=== PATIENT | male | born 1940 | race Caucasian/White ===

== ENCOUNTER 2020-02-11 10:18 | Outpatient (REF) | payer OTHER, SELFPAY ==
[2020-02-11 11:08] LABS: MANUAL DIFF FLAG NO
[2020-02-11 11:19] LABS: Basophils Percent Auto 0.6 % (0-2); Eosinophils Absolute Auto 0.6 X10*3/uL (0.0-0.4); Eosinophils Percent Auto 12.1 % (0-4); Imm Gran Abs Auto 0.01 X10*3/uL (0.00-0.03); Imm Gran Pct Auto 0.2 % (0.0-0.4); Lymphocytes Absolute Auto 2.1 X10*3/uL (1.2-4.9); Lymphocytes Percent Auto 45.2 % (20-40); Mean Corpuscular HGB Conc 33.3 g/dl (31.0-36.0); Mean Corpuscular Hemoglobin 32.7 pg (27.0-33.0); Mean Platelet Volume 9.9 fL (9.4-12.4); Monocytes Absolute Auto 0.4 X10*3/uL (0.1-1.2); Monocytes Percent Auto 7.8 % (2-11); Neutrophils Absolute Auto 1.6 X10*3/uL (2.0-8.3); Neutrophils Percent Auto 34.1 % (45-73); Platelet Count 196 X10*3/uL (160-400); Red Blood Count 4.59 X10*6/uL (4.60-5.80); Red Cell Distribution Width 12.8 % (11.0-16.0); White Blood Count 4.7 X10*3/uL (4.8-10.8)
[2020-02-11 11:35] LABS: Alanine Aminotransferase 36 U/L (0-40); Albumin Level 3.7 g/dL (3.5-5.0); Alkaline Phosphatase 72 U/L (39-117); Anion Gap 9 (12-20); Aspartate Amino Transferase 23 U/L (5-37); Bilirubin Total 0.5 mg/dL (0.0-1.0); Blood Urea Nitrogen 23 mg/dL (9-16); Calcium 8.9 mg/dL (8.4-10.2); Carbon Dioxide 31 mmol/L (22-29); Chloride 107 mmol/L (96-108); Cholesterol 191 mg/dL; Estimated Glomerular Filt Rate > 60; Glucose Fasting 106 mg/dL (60-99); HDL Cholesterol 42 mg/dL; LDL Cholesterol Calculated 116 mg/dl; Potassium 4.6 mmol/l (3.3-5.1); Sodium 142 mmol/L (135-145); Total Protein 6.7 g/dL (6.5-8.0); Triglycerides 169 mg/dL
[2020-02-11 11:59] LABS: Thyroid Stimulating Hormone 2.27 uIU/mL (0.32-4.0)
== END 2020-02-11 10:19 | disposition home or self-care (01) ==
LOC: HO.LAB 10:18
PROVIDERS: PCP Internal Medicine; Visit Provider Internal Medicine
DX: Z00.00 Encounter for general adult medical examination without abnormal findings (principal); E11.9 Type 2 diabetes mellitus without complications; E03.9 Hypothyroidism, unspecified
CPT/HCPCS: 36415; 80053; 80061; 84443; 85025

== ENCOUNTER 2020-02-23 15:21 | Inpatient (IN) | payer OTHER, SELFPAY ==
[2020-02-23] VITALS (11 sets, daily range): BP systolic 101–147; BP diastolic 39–59; PULSE 54–104; RESP 11–18; TEMP 36.4–36.6; O2SAT 94–100; BMI 29.8
--- NOTE | 2020-02-23 15:28 | ECG_ITS ---
Test Reason : SYNCOE Blood Pressure : / mmHG Vent. Rate : 053 BPM Atrial Rate : 053 BPM P-R Int : 178 ms QRS Dur : 086 ms QT Int : 446 ms P-R-T Axes : 037 070 128 degrees QTc Int : [address] & T wave abnormality, consider anterolateral ischemia Abnormal ECG When compared with ECG of 23-OCT-2003 10:10, Current undetermined rhythm precludes rhythm comparison, needs review Non-specific change in ST segment in Anterior leads T wave inversion now evident in Anterolateral leads Referred By: Latonya Vera Electronically Signed By:CORI REDMAN MD
--- NOTE | 2020-02-23 15:34 | ED_ITS ---
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 Family and EMS offer history, patient is minimally verbal at baseline. Patient was found lethargic and altered after he lost consciousness. On EMS arrival patient was pale, hypotensive 80/50's with HR in the 50's. He was given 500cc IVF en route and his VS and appearance improved significantly. Patient offers no complaints on arrival. MD complaint: loss of consciousness Onset (ago): hour(s) (1) -: second(s) Related Data Home Medications Medication Instructions Recorded Confirmed citalopram 20 mg tablet 20 mg PO DAILY 02/11/20 02/11/20 galantamine 8 mg tablet 8 mg PO BID 02/11/20 02/11/20 memantine 10 mg tablet 10 mg PO BID 02/11/20 02/11/20 Allergies Allergy/AdvReac Type Severity Reaction Status Date / Time No Known Allergies Allergy Verified 02/11/20 09:24 Review of Systems Review of Systems: Yes Unobtainable due to mental condition and Unobtainable due to mental status PMFSH Past Medical History Attestation statement: The following information was validated with the patient. Medical History Dementia Surgical History H/O rectal polypectomy History of ligation of vein History of surgery Family History Family History Father Medical history unknown Mother Medical history unknown Social History Social History (Updated 02/11/20 @ 09:26 by Erum Palomino) Alcohol intake: unknown Smoking Status: Unknown if ever smoked Use of substances other than those prescribed or required for medical reasons: Unable to respond Advance Directives: No Advance Directives Information Provided: Yes Physical Exam Vital Signs: Vital Signs: Last Vital Signs Temp 97.5 F 02/23/20 15:24 Pulse 54 02/23/20 17:02 Resp 18 02/23/20 17:02 BP 101/40 L 02/23/20 17:02 Pulse Ox 94 02/23/20 17:02 Body Mass Index 29.8 Appearance: Alert. No acute distress. Eyes: Pupils equal, round and reactive to light. ENT: Pharynx normal. Neck: Normal inspection. Neck supple. CVS: Normal heart rate and rhythm. Pulses normal. No chest wall tenderness. Respiratory: No respiratory distress. Breath sounds normal. Abdomen: Soft and nontender. +BS x4 Skin: Skin warm and dry. Normal skin color. Normal skin turgor. No rashes. Extremities: No lower extremity edema. Pelvis stable. Non-tender LE. 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 Course Course Course Narrative: 79 y/o male with history of dementia who presents with syncopal episode while having a BM. Likely vasovagal syncope. Improved after 500cc IVF. Will get cardiac workup. Exam is benign. Reevaluation(s) Reevaluation #1: EKG with new t-wave inversions V2-V6 compared to prior. Initial troponin is negative. Case discussed with Dr. Marrero - admission recommended. Hospitalist aware. MDM - Syncope Differential Diagnosis Differential diagnosis: Likely syncope due to orthostatic hypotension, vasovagal syncope, complete atrioventricular block, subarachnoid hemorrhage, pulmonary embolism and dehydration Medical Records Attestation: I reviewed the patient's medical records. Lab Data Result diagrams: 02/23/20 16:09 02/23/20 16:09 Labs: Lab Results 02/23/20 02/23/20 02/23/20 Range/Units 16:09 16:09 16:09 WBC 7.2 (4.8-10.8) X10*3/uL RBC 4.49 L (4.60-5.80) X10*6/uL Hgb 14.7 (14.0-18.0) g/dl Hct 44.0 (42-52) % MCV 98.0 (80-98) fL MCH 32.7 (27.0-33.0) pg MCHC 33.4 (31.0-36.0) g/dl RDW 12.7 (11.0-16.0) % Plt Count 220 (160-400) X10*3/uL MPV 9.7 (9.4-12.4) fL Immature Gran % (Auto) 0.3 (0.0-0.4) % Neut % (Auto) 55.1 (45-73) % Lymph % (Auto) 29.0 (20-40) % [place] % (Auto) 9.2 (2-11) % Eos % (Auto) 5.8 H (0-4) % Baso % (Auto) 0.6 (0-2) % Lymph # (Auto) 2.1 (1.2-4.9) X10*3/uL [place] # (Auto) 0.7 (0.1-1.2) X10*3/uL Eos # (Auto) 0.4 (0.0-0.4) X10*3/uL Baso # (Auto) 0.0 (0.0-0.2) X10*3/uL Abs Immat Gran (auto) 0.02 (0.00-0.03) X10*3/uL Absolute Neuts (auto) 4.0 (2.0-8.3) X10*3/uL Absolute Nucleated RBC 0.000 (0.0-0.012) X10*3/uL Nucleated RBC % (auto) 0.0 (0.0-0.2) /100WBC PT (10.8-13.0) SEC INR (0.9-1.1) Sodium 142 (135-145) mmol/L Potassium 4.4 (3.3-5.1) mmol/l Chloride 107 (96-108) mmol/L Carbon Dioxide 28 (22-29) mmol/L Anion Gap 11 L (12-20) BUN 17 H (9-16) mg/dL Creatinine 1.32 (0.5-1.4) mg/dL Estim Creat Clear Calc 57.3 Estimated GFR 53 Random Glucose 131 H (60-115) mg/dL Calcium 8.5 (8.4-10.2) mg/dL Magnesium 2.5 (1.6-2.6) mg/dL Total Bilirubin 0.4 (0.0-1.0) mg/dL Direct Bilirubin 0.2 (0.0-0.5) mg/dL AST 16 (5-37) U/L ALT 21 (0-40) U/L Alkaline Phosphatase 67 (39-117) U/L Troponin I High Sens < 3.5 (<3.5-35.0) ng/L Total Protein 6.4 L (6.5-8.0) g/dL Albumin 3.6 (3.5-5.0) g/dL 02/23/20 Range/Units 16:09 WBC (4.8-10.8) X10*3/uL RBC (4.60-5.80) X10*6/uL Hgb (14.0-18.0) g/dl Hct (42-52) % MCV (80-98) fL MCH (27.0-33.0) pg MCHC (31.0-36.0) g/dl RDW (11.0-16.0) % Plt Count (160-400) X10*3/uL MPV (9.4-12.4) fL Immature Gran % (Auto) (0.0-0.4) % Neut % (Auto) (45-73) % Lymph % (Auto) (20-40) % [place] % (Auto) (2-11) % Eos % (Auto) (0-4) % Baso % (Auto) (0-2) % Lymph # (Auto) (1.2-4.9) X10*3/uL [place] # (Auto) (0.1-1.2) X10*3/uL Eos # (Auto) (0.0-0.4) X10*3/uL Baso # (Auto) (0.0-0.2) X10*3/uL Abs Immat Gran (auto) (0.00-0.03) X10*3/uL Absolute Neuts (auto) (2.0-8.3) X10*3/uL Absolute Nucleated RBC (0.0-0.012) X10*3/uL Nucleated RBC % (auto) (0.0-0.2) /100WBC PT 12.3 (10.8-13.0) SEC INR 1.0 (0.9-1.1) Sodium (135-145) mmol/L Potassium (3.3-5.1) mmol/l Chloride (96-108) mmol/L Carbon Dioxide (22-29) mmol/L Anion Gap (12-20) BUN (9-16) mg/dL Creatinine (0.5-1.4) mg/dL Estim Creat Clear Calc Estimated GFR Random Glucose (60-115) mg/dL Calcium (8.4-10.2) mg/dL Magnesium (1.6-2.6) mg/dL Total Bilirubin (0.0-1.0) mg/dL Direct Bilirubin (0.0-0.5) mg/dL AST (5-37) U/L ALT (0-40) U/L Alkaline Phosphatase (39-117) U/L Troponin I High Sens (<3.5-35.0) ng/L Total Protein (6.5-8.0) g/dL Albumin (3.5-5.0) g/dL ECG Data Attestation: I personally reviewed and interpreted this ECG as follows: Prior ECG tracings: available for review Interpretation: sinus bradycardia, HR 55, diffuse t-wave inversions in V2-V6. normal MA Interval. Discharge Plan Discharge Clinical Impression: Syncope, Abnormal EKG Patient Disposition: Admitted As Inpatient Prescriptions: No Action galantamine 8 mg tablet 8 mg PO BID RF: 0 memantine 10 mg tablet 10 mg PO BID RF: 0 citalopram 20 mg tablet 20 mg PO DAILY RF: 0
[2020-02-23 16:14] LABS: MANUAL DIFF FLAG NO
[2020-02-23 16:19] LABS: Basophils Percent Auto 0.6 % (0-2); Eosinophils Absolute Auto 0.4 X10*3/uL (0.0-0.4); Eosinophils Percent Auto 5.8 % (0-4); Hemoglobin 14.7 g/dl (14.0-18.0); Imm Gran Abs Auto 0.02 X10*3/uL (0.00-0.03); Imm Gran Pct Auto 0.3 % (0.0-0.4); Lymphocytes Absolute Auto 2.1 X10*3/uL (1.2-4.9); Mean Corpuscular HGB Conc 33.4 g/dl (31.0-36.0); Mean Corpuscular Hemoglobin 32.7 pg (27.0-33.0); Mean Platelet Volume 9.7 fL (9.4-12.4); Monocytes Absolute Auto 0.7 X10*3/uL (0.1-1.2); Monocytes Percent Auto 9.2 % (2-11); Neutrophils Percent Auto 55.1 % (45-73); Platelet Count 220 X10*3/uL (160-400); Red Blood Count 4.49 X10*6/uL (4.60-5.80); Red Cell Distribution Width 12.7 % (11.0-16.0); White Blood Count 7.2 X10*3/uL (4.8-10.8)
[2020-02-23 16:29] LABS: Prothrombin Time 12.3 SEC (10.8-13.0)
[2020-02-23 16:39] LABS: Alanine Aminotransferase 21 U/L (0-40); Albumin Level 3.6 g/dL (3.5-5.0); Alkaline Phosphatase 67 U/L (39-117); Anion Gap 11 (12-20); Aspartate Amino Transferase 16 U/L (5-37); Bilirubin Direct 0.2 mg/dL (0.0-0.5); Bilirubin Total 0.4 mg/dL (0.0-1.0); Blood Urea Nitrogen 17 mg/dL (9-16); Calcium 8.5 mg/dL (8.4-10.2); Carbon Dioxide 28 mmol/L (22-29); Chloride 107 mmol/L (96-108); Creatinine Clr Calc Pharmacy 57.3; Estimated Glomerular Filt Rate 53; Glucose Random 131 mg/dL (60-115); Magnesium 2.5 mg/dL (1.6-2.6); Potassium 4.4 mmol/l (3.3-5.1); Sodium 142 mmol/L (135-145); Total Protein 6.4 g/dL (6.5-8.0)
[2020-02-23 16:42] LABS: Troponin-I High Sensitivity < 3.5 ng/L (<3.5-35.0)
--- NOTE | 2020-02-23 18:31 | PC.NURSE ---
Labs reviewed by PA, pt to be admitted to hospitalist service, updated on plan. Pt remains confused, ripped out IV. New #20 placed in right hand and wrapped with gauze. SR on monitor, alert and appears to be at baseline. Awaiting hospitalist eval
[2020-02-23 19:44] LABS: Troponin-I High Sensitivity < 3.5 ng/L (<3.5-35.0)
--- NOTE | 2020-02-23 20:58 | PC.NURSE ---
PT HAS HIS OWN HOME MEDICATIONS WITH HIM. PT ADMINISTERED MEMANTINE 10MG AND GALANTAMINE HBR 8MG TABLET.
[2020-02-23 21:07] LABS: COVID-19 Test Negative (Negative)
[2020-02-23] MEDS: Heparin Sodium,Porcine 5,000 UNIT/ML VIAL 5000 UNIT SUBCUT (21:40)
[2020-02-23] MEDS: Lactated Ringers 1,000 ML 100 ML IVCONT (21:40)
--- NOTE | 2020-02-23 22:32 | P.HPHOSP_ITS ---
History of Present Illness Date of Service: 02/23/20 Chief Complaint: syncope This is a 79-year-old male with past medical history of Alzheimer's dementia presents to the hospital with reported syncope. I spoke to the as patient has advanced Alzheimer's dementia and is nonverbal at baseline. According to hi s he woke up this morning as normal but when she bathes him he had a difficult time getting out of the shower. He did not want to get out of the shower and she had to prompt him to get out and have breakfast. Around 2:00 p.m. he went to use the bathroom but took a long time and she went and check on him and found him sitting on the toilet with feces in his pants which is unusual for him. She tried to clean him while in the bathroom an after cleaning him she noted him to have an unusual behavior where he showed his eyes hard and was not moving or responding to any of her verbal commands. Patient's reports that she thought he was unconscious although he did not have a fall of the toilet seat and remained seated in his position. Patient also reports that he has not been eating that much for the past few weeks, has low oral intake. She has to prompted him to be able to get him to eat anything. She denies witnessing any seizure-like activity. She reports that this may have lasted about 3-4 minutes. He had no vomiting, he has been otherwise doing well. I am unable to obtain complete review of system is patient has advanced dementia and is nonverbal at baseline On arrival to the ED vitals are significant for a temp of 97.5?, heart rate of 55, respiratory rate of 16, blood pressure 116/41 and satting 99% on room air. It appears that on arrival of EMS patient's blood pressure was found to be 80s over 50s and heart rate in the 50s. Labs are significant for WBC count 7.2, hemoglobin of 14.7, sodium of 142, potassium 4.4, BUN of 17, creatinine of 1.32 (baseline around 1 point 2), COVID- 19 negative, EKG showing QT interval of 418, has T-wave inversions in the late ral leads that were not present previously. High sensitivity troponin negative, patient unable to tell us if he has any chest pain Past medical history is obtained from chart Past medical history: Dementia Surgical history: Rectal polypectomy, ligation of ink, Family history: Unknown Social history: Comes from home, lives with his , no history of tobacco alcohol or illicit drugs Review of Systems Review of Systems: Yes Unobtainable due to mental condition and Unobtainable due to mental status [facility] Medical History Dementia Family History Father Medical history unknown Mother Medical history unknown Surgical History H/O rectal polypectomy History of ligation of vein History of surgery Social History (Updated 02/11/20 @ 09:26 by Erum Palomino) Alcohol intake: unknown Smoking Status: Unknown if ever smoked Use of substances other than those prescribed or required for medical reasons: Unable to respond Advance Directives: No Advance Directives Information Provided: Yes Meds Allergies Allergy/AdvReac Type Severity Reaction Status Date / Time No Known Allergies Allergy Verified 02/11/20 09:24 Home Medications Medication Instructions Recorded Confirmed Type citalopram 20 mg tablet 20 mg PO DAILY 02/11/20 02/23/20 History galantamine 8 mg tablet 8 mg PO BID 02/11/20 02/23/20 History memantine 10 mg tablet 10 mg PO BID 02/11/20 02/23/20 History ascorbic acid (vitamin C) [Vitamin 500 mg PO DAILY 02/23/20 02/23/20 History C] cholecalciferol (vitamin D3) 25 mcg PO DAILY 02/23/20 02/23/20 History Physical Exam Vital Signs and Narrative: Vital Signs: Last Vital Signs Temp 97.5 F 02/23/20 15:24 Pulse 104 H 02/23/20 21:56 Resp 11 L 02/23/20 21:36 BP 111/39 L 02/23/20 21:56 Pulse Ox 99 02/23/20 21:36 Body Mass Index 29.8 Const: General: cooperative and no acute distress Eyes: General: appearance normal, both eyes and all related structures Resp: Effort & Inspection: normal respiratory effort and able to speak in complete sentences Cardio: Rate: regular rate Rhythm: regular rhythm GI: Palpation (GI): Soft to palpation Auscultation: normal bowel sounds Skin: General skin exam: no rashes or lesions noted Neuro: Cognition (Neuro): normal cognition Extrem: General: Yes normal to inspection and Yes no pedal edema Results Labs CBC and Chem 7: 02/23/20 16:09 02/23/20 16:09 Labs: Laboratory Results - last 24 hr 02/23/20 02/23/20 02/23/20 16:09 16:09 16:09 MCV 98.0 MCH 32.7 MCHC 33.4 RDW 12.7 Plt Count 220 MPV 9.7 Immature Gran % (Auto) 0.3 Neut % (Auto) 55.1 Lymph % (Auto) 29.0 [place] % (Auto) 9.2 Eos % (Auto) 5.8 H Baso % (Auto) 0.6 Lymph # (Auto) 2.1 [place] # (Auto) 0.7 Eos # (Auto) 0.4 Baso # (Auto) 0.0 Abs Immat Gran (auto) 0.02 Absolute Neuts (auto) 4.0 Absolute Nucleated RBC 0.000 Nucleated RBC % (auto) 0.0 PT INR Anion Gap 11 L Estim Creat Clear Calc 57.3 Estimated GFR 53 Random Glucose 131 H Calcium 8.5 Magnesium 2.5 Total Bilirubin 0.4 Direct Bilirubin 0.2 AST 16 ALT 21 Alkaline Phosphatase 67 Troponin I High Sens < 3.5 Total Protein 6.4 L Albumin 3.6 COVID-19 (K[facility]LA) COVID-19 [employer] 02/23/20 02/23/20 02/23/20 16:09 19:11 20:42 MCV MCH MCHC RDW Plt Count MPV Immature Gran % (Auto) Neut % (Auto) Lymph % (Auto) [place] % (Auto) Eos % (Auto) Baso % (Auto) Lymph # (Auto) [place] # (Auto) Eos # (Auto) Baso # (Auto) Abs Immat Gran (auto) Absolute Neuts (auto) Absolute Nucleated RBC Nucleated RBC % (auto) PT 12.3 INR 1.0 Anion Gap Estim Creat Clear Calc Estimated GFR Random Glucose Calcium Magnesium Total Bilirubin Direct Bilirubin AST ALT Alkaline Phosphatase Troponin I High Sens < 3.5 Total Protein Albumin COVID-19 (KARLA) Negative COVID-19 Clin Com See Note Assessment and Plan (1) Syncope: Qualifiers: Syncope type: unspecified Qualified Code(s): R55 - Syncope and collapse Status: Acute (2) Abnormal EKG: Status: Acute 79-year-old male with history of dementia who presents to the hospital with syncope # syncope - vasovagal versus cardiogenic versus neurogenic versus orthostatic hypotension - apparently was significantly hypotensive on arrival of EMS with blood pressure 80 over 50s received 500 of NS by EMS with blood pressure improving - has EKG changes that were not present in the past with negative troponin - patient was using the bathroom when the incident occurred Plan: - will admit to telemetry - obtain an echocardiogram - Obtain orthostatic vitals - IV fluids # T-wave inversions on EKG - troponin negative, unable to obtain as patient has any cardiac symptoms due to his medical condition - will obtain echocardiogram - admit to telemetry Code status: Spoke to his regarding code status and she wants patient to be DNR DNI DVT prophylaxis: Lovenox
[2020-02-24] VITALS (7 sets, daily range): BP systolic 123–157; BP diastolic 56–78; PULSE 76–122; RESP 18–20; TEMP 36.4–37; O2SAT 94–97
[2020-02-24 05:20] LABS: Basophils Percent Auto 0.2 % (0-2); Eosinophils Absolute Auto 0.4 X10*3/uL (0.0-0.4); Eosinophils Percent Auto 6.3 % (0-4); Hematocrit 39.7 % (42-52); Hemoglobin 13.6 g/dl (14.0-18.0); Imm Gran Abs Auto 0.01 X10*3/uL (0.00-0.03); Imm Gran Pct Auto 0.2 % (0.0-0.4); Lymphocytes Absolute Auto 2.8 X10*3/uL (1.2-4.9); Lymphocytes Percent Auto 43.7 % (20-40); MANUAL DIFF FLAG NO; Mean Corpuscular HGB Conc 34.3 g/dl (31.0-36.0); Mean Corpuscular Hemoglobin 32.8 pg (27.0-33.0); Mean Corpuscular Volume 95.7 fL (80-98); Mean Platelet Volume 9.9 fL (9.4-12.4); Monocytes Absolute Auto 0.6 X10*3/uL (0.1-1.2); Monocytes Percent Auto 8.9 % (2-11); Neutrophils Absolute Auto 2.6 X10*3/uL (2.0-8.3); Neutrophils Percent Auto 40.7 % (45-73); Platelet Count 193 X10*3/uL (160-400); Red Blood Count 4.15 X10*6/uL (4.60-5.80); Red Cell Distribution Width 12.5 % (11.0-16.0); White Blood Count 6.3 X10*3/uL (4.8-10.8)
--- NOTE | 2020-02-24 05:27 | PC.NURSE ---
pt has been sleeping all night, wakes easily. pt has iv on right hand secured with gauze, he will pull iv out. pt was pulling iv line and biting tubing at one point. pt answers with one word responses.
[2020-02-24 05:43] LABS: Anion Gap 13 (12-20); Blood Urea Nitrogen 15 mg/dL (9-16); Calcium 8.4 mg/dL (8.4-10.2); Carbon Dioxide 26 mmol/L (22-29); Chloride 107 mmol/L (96-108); Creatinine Clr Calc Pharmacy 80.4; Estimated Glomerular Filt Rate > 60; Glucose Random 91 mg/dL (60-115); Potassium 3.6 mmol/l (3.3-5.1); Sodium 142 mmol/L (135-145)
[2020-02-24 06:19] LABS: Glucose Urine UA NEG (NEG); Leukocyte Esterase Urine NEG (NEG); Nitrite Urine NEG (NEG); Specific Gravity - Urine >= 1.030 (1.005-1.025); Urine Blood NEG (NEG); Urine Ketones 15 MG/DL (NEG); Urine Protein NEG (NEG-TRACE)
[2020-02-24 06:20] LABS: Appearance Urine CLEAR; Color Urine YELLOW; UACC Culture Trigger NO
[2020-02-24] MEDS: Escitalopram Oxalate 10 MG TABLET PO (09:28)
[2020-02-24] MEDS: Memantine HCl 10 MG TABLET PO ×2 (09:28→19:54)
[2020-02-24] MEDS: Heparin Sodium,Porcine 5,000 UNIT/ML VIAL 5000 UNIT SUBCUT ×2 (09:28→19:54)
[2020-02-24] MEDS: Cholecalciferol (Vitamin D3) 25 MCG TABLET PO (09:28)
[2020-02-24] MEDS: Lactated Ringers 1,000 ML 100 ML IVCONT (09:32)
--- NOTE | 2020-02-24 09:40 | PC.NURSE ---
pt alert but confused, ate all of his breakfast, respirations even and unlabored, ls clear, ns on the monitor, pt incontinent of urine, cleaned up and bed linens changed over, on the left inner thing noticeable excoriated redness, barrier cream applied
--- NOTE | 2020-02-24 10:25 | PC.NURSE ---
report given to imc rn
--- NOTE | 2020-02-24 11:12 | MHC.CM.PN ---
Patient has Advanced Alzheimer's Dementia; CM spoke with /HCP/Meera @ [phone].Patient lives in a house with his and has required no DME nor services in the home thus far. The goal for dc is for Patient to return home and CM has initiated and will follow for dc planning. PCP is Dr. Will Mcknight. and Son/Emil are the HCP Agents.
--- NOTE | 2020-02-24 14:23 | MHC.CM.PN ---
Per Discussion with family, Son/HCP/Emil at [phone] is family spokesperson/first contact. is agreeable to call Emil today with a clinical update. CM will follow.
--- NOTE | 2020-02-24 15:02 | MHC.CLN ---
RE: CONSULT WILL START LEENA R/T FRAGILE SKIN
--- NOTE | 2020-02-24 15:47 | MHC.CM.PN ---
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
--- NOTE | 2020-02-24 16:37 | P.PNIM_ITS ---
Subjective Subjective Date of Service: 02/24/20 Interval History: seen and examined in the ED this AM non-verbal unable to ROS d/w the patients son Emil, patient's Physical Exam Vital Signs: Vital Signs: Last Vital Signs Temp 98.6 F 02/24/20 16:04 Pulse 92 02/24/20 16:04 Resp 18 02/24/20 16:04 BP 137/71 02/24/20 16:04 Pulse Ox 95 02/24/20 16:04 Body Mass Index 29.8 Const: General: cooperative and no acute distress Eyes: General: appearance normal, both eyes and all related structures Pupi ls: Equal, round and reactive pupils present Resp: Effort & Inspection: normal respiratory effort and able to speak in complete sentences Cardio: Rate: regular rate Rhythm: regular rhythm GI: Palpation (GI): Soft to palpation Auscultation: normal bowel sounds Skin: General skin exam: no rashes or lesions noted Neuro: Cranial nerves: Yes Equal, round and reactive pupils present Extrem: General: Yes normal to inspection and Yes no pedal edema Objective Data Current Medications Generic Name Dose Route Start Last Admin Trade Name Mitchellq PRN Reason Stop Dose Admin Acetaminophen 650 mg 02/23/20 21:04 Acetaminophen 325 Mg Tablet PO Q6H PRN Pain, Mild (Pain Scale 1-3) Docusate Sodium 100 mg 02/23/20 21:04 Docusate Sodium 100 Mg Capsule PO DAILY PRN Constipation Escitalopram Oxalate 10 mg 02/24/20 09:00 02/24/20 09:28 Escitalopram Oxalate 10 Mg Tablet PO 10 mg DAILY MADELINE Administration Heparin Sodium (Porcine) 5,000 unit 02/23/20 21:04 02/24/20 09:28 Heparin Sodium,Porcine 5,000 Unit/Ml Vial SUBCUT 5,000 unit Q12H MADELINE Administration Lactated Ringer's 1,000 mls @ 100 mls/hr 02/23/20 21:15 02/24/20 15:55 Lr IVCONT Not Given .Q10H MADELINE Memantine 10 mg 02/23/20 21:04 02/24/20 09:28 Memantine Hcl 10 Mg Tablet PO 10 mg BID MADELINE Administration Ondansetron HCl 4 mg 02/23/20 21:04 Ondansetron Hcl 4 Mg/2 Ml Vial IVPUSH Q8H PRN Nausea and Vomiting Pharmacy Consult 1 each 02/23/20 19:07 Consult Rx Perform Med Rec MISCELLANE ONCE PRN Consult order Sodium Chloride 3 ml 02/24/20 00:00 02/24/20 15:27 0.9 % Sodium Chloride Flush 3 Ml Syringe IVFLUSH Not Given QSHIFT MADELINE Vitamin D 25 mcg 02/24/20 09:00 02/24/20 09:28 Cholecalciferol (Vitamin D3) 25 Mcg Tablet PO 25 mcg DAILY MADELINE Administration Labs CBC & Chem 7: 02/24/20 05:05 02/24/20 05:05 Assessment and Plan (1) Syncope: Status: Acute (2) Abnormal EKG: Status: Acute Assessment and Plan: 79-year-old male with history of dementia who presents to the hospital with sy ncope 1. syncope vasovagal versus cardiogenic versus neurogenic versus orthostatic hypotension check orthos montior on tele, get echo pt hypotensive with EMS, but has been normotensive here. 2. T-wave inversions on EKG HS trop-I neg x 2 echo today continue monitoring 3. Dementia/Mood continue home meds DNR/DNI DVT pptx, subcut. heparin dispo: likely home tomorrow
[2020-02-25] VITALS (7 sets, daily range): BP systolic 99–145; BP diastolic 52–71; PULSE 64–99; RESP 18–20; TEMP 36.4–37.3; O2SAT 90–94
[2020-02-25] MEDS: 0.9 % Sodium Chloride Flush 3 ML SYRINGE IVFLUSH ×4 (02:04→21:17)
[2020-02-25] MEDS: Heparin Sodium,Porcine 5,000 UNIT/ML VIAL 5000 UNIT SUBCUT ×2 (08:49→21:09)
[2020-02-25] MEDS: Cholecalciferol (Vitamin D3) 25 MCG TABLET PO (08:49)
[2020-02-25] MEDS: Escitalopram Oxalate 10 MG TABLET PO (08:49)
[2020-02-25] MEDS: Memantine HCl 10 MG TABLET PO ×2 (08:50→21:09)
[2020-02-25 09:58] LABS: Hematocrit 37.4 % (42-52); Hemoglobin 12.7 g/dl (14.0-18.0); Mean Corpuscular Hemoglobin 32.9 pg (27.0-33.0); Mean Corpuscular Volume 96.9 fL (80-98); Mean Platelet Volume 10.1 fL (9.4-12.4); Platelet Count 190 X10*3/uL (160-400); Red Blood Count 3.86 X10*6/uL (4.60-5.80); Red Cell Distribution Width 12.8 % (11.0-16.0); White Blood Count 4.5 X10*3/uL (4.8-10.8)
[2020-02-25 10:25] LABS: Anion Gap 11 (12-20); Blood Urea Nitrogen 13 mg/dL (9-16); Calcium 8.5 mg/dL (8.4-10.2); Carbon Dioxide 27 mmol/L (22-29); Chloride 108 mmol/L (96-108); Creatinine Clr Calc Pharmacy 68.1; Estimated Glomerular Filt Rate > 60; Glucose Random 103 mg/dL (60-115); Sodium 142 mmol/L (135-145)
--- NOTE | 2020-02-25 11:07 | MHC.CM.PN ---
Per ROUNDS discussion, W/U continues for Patient's Hypotension/Syncope and he is not yet medically cleared for dc. Home with is the goal for dc and CM will continue to monitor for dc planning and the possible need to adjust the dc plan.
--- NOTE | 2020-02-25 14:02 | MHC.CM.PN ---
CM received a call from Patient's Son/HCP/Emil at [phone], inquiring why Patient's ECHO has not yet been done. KEKE relayed this question to , who indicated that he will return Emil's call himself.
--- NOTE | 2020-02-25 15:32 | MHC.CM.PN ---
The plan will be to return home tomorrow with new VNA. CM received permission to do a wide search for a VNA in contract with Patient's insurance. CM will follow.
--- NOTE | 2020-02-25 16:36 | P.PNIM_ITS ---
Subjective Subjective Date of Service: 02/25/20 Interval History: seen and examined in the ED this AM no new issues d/w the patients son Emil this afternoon and updates given Physical Exam Vital Signs: Vital Signs: Last Vital Signs Temp 98.5 F 02/25/20 15:22 Pulse 73 02/25/20 15:22 Resp 18 02/25/20 15:22 BP 119/66 02/25/20 15:22 Pulse Ox 92 02/25/20 15:22 Body Mass Index 29.8 Const: General: cooperative and no acute distress Eyes: General: appearance normal, both eyes and all related structures Pupils: Equal, round and reactive pupils present Resp: Effort & Inspection: normal respiratory effort and able to speak in complete sentences Cardio: Rate: regular rate Rhythm: regular rhythm GI: Palpation (GI): Soft to palpation Auscultation: normal bowel sounds Skin: General skin exam: no rashes or lesions noted Neuro: Cranial nerves: Yes Equal, round and reactive pupils present Extrem: General: Yes normal to inspection and Yes no pedal edema Objective Data Current Medications Generic Name Dose Route Start Last Admin Trade Name Freq PRN Reason Stop Dose Admin Acetaminophen 650 mg 02/23/20 21:04 Acetaminophen 325 Mg Tablet PO Q6H PRN Pain, Mild (Pain Scale 1-3) Docusate Sodium 100 mg 02/23/20 21:04 Docusate Sodium 100 Mg Capsule PO DAILY PRN Constipation Escitalopram Oxalate 10 mg 02/24/20 09:00 02/25/20 08:49 Escitalopram Oxalate 10 Mg Tablet PO 10 mg DAILY MADELINE Administration Heparin Sodium (Porcine) 5,000 unit 02/23/20 21:04 02/25/20 08:49 Heparin Sodium,Porcine 5,000 Unit/Ml Vial SUBCUT 5,000 unit Q12H MADELINE Administration Memantine 10 mg 02/23/20 21:04 02/25/20 08:50 Memantine Hcl 10 Mg Tablet PO 10 mg BID MADELINE Administration Ondansetron HCl 4 mg 02/23/20 21:04 Ondansetron Hcl 4 Mg/2 Ml Vial IVPUSH Q8H PRN Nausea and Vomiting Pharmacy Consult 1 each 02/23/20 19:07 Consult Rx Perform Med Rec MISCELLANE ONCE PRN Consult order Sodium Chloride 3 ml 02/24/20 00:00 02/25/20 16:19 0.9 % Sodium Chloride Flush 3 Ml Syringe IVFLUSH 3 ml QSHIFT MADELINE Administration Vitamin D 25 mcg 02/24/20 09:00 02/25/20 08:49 Cholecalciferol (Vitamin D3) 25 Mcg Tablet PO 25 mcg DAILY MADELINE Administration Labs CBC & Chem 7: 02/25/20 09:31 02/25/20 09:31 Assessment and Plan (1) Syncope: Status: Acute (2) Abnormal EKG: Status: Acute Assessment and Plan: 79-year-old male with history of dementia who presents to the hospital with sync ope 1. syncope orthostatic negative, no reports of abnomalities on tele thus far, echo done -- pending formal results suspect likely vasovagal in nature will monitor an additional night and anticipate d/c home tomorrow with services 2. T-wave inversions on EKG HS trop-I neg x 2 echo pending continue monitoring 3. Dementia/Mood continue home meds DNR/DNI DVT pptx, subcut. heparin dispo: anticipate home with services tomorrow
--- NOTE | 2020-02-25 23:00 | CA_ITS ---
Transthoracic Echocardiogram Patient (Last, First, Middle): Salbador Bolaños J Gender: Male Date of : 1940 Age: 79 Procedure Date: 02/25/2020 Procedure Type: Transthoracic Echocardiogram Location: [facility] [place] Height: 182.88 cm Weight: 99.79 kg BSA: 2.22 m2 Heart Rate: bpm BP: 146 / 76 mmHg Tin Recovery Worker: DSG Referring MD: Robert Levine MD Administration Dean: Peewee Elliott MD Symptoms: syncope Study Quality: Technically Difficult ECG Rhythm: Sinus Conclusions: - 1. Technically difficult study 2. Normal LV systolic function with impaired relaxation filling pattern 3. Normal cardiac valvular Doppler 4. No gross pericardial effusion Findings Left Ventricle Normal left ventricular size, thickness, and systolic function. The visually estimated ejection fraction is between 60-65%. Spectral Doppler is indicative of an impaired relaxation filling pattern. Right Ventricle Normal right ventricular cavity size and systolic function. Atria Both atria are normal in size. Interatrial shunt cannot be excluded. Aortic Valve The aortic valve was not well visualized. There is no aortic valve stenosis. There is no aortic valve regurgitation. Mitral Valve Likely normal mitral valve structure and function. There is trace mitral valve regurgitation. There is no mitral valve stenosis. Pulmonic Valve The pulmonic valve was not well visualized. Tricuspid Valve The tricuspid valve was not well visualized. Tricuspid regurgitation envelope is inadequate for calculation of right ventricular systolic pressure. Great Vessels All visible segments of the aorta are normal in size. The pulmonary artery was not well visualized. Venous The inferior vena cava is normal in size and collapses greater than 50% with inspiration. Pericardium/Pleural There is no evidence of pericardial effusion. Prior Study Comparison No prior study available for comparison. Measurements 2D Linear Measurements IVSd: 1.37 0.6-0.9/0.6-1.0 cm LVIDd: 3.85 3.9-5.3/4.2-5.9 cm LVIDd Index: 1.73 2.4-3.2/2.2-3.1 cm/m2 LVIDs: 2.39 2.0-3.6 cm LVPWd: 1.00 0.7-1.1 cm Ao Root: 3.30 2.1-3.5 cm LA Diam: 2.50 2.7-3.8/3.0-4.0 cm LAIDs Index: 1.13 1.5-2.3 cm/m2 LV Mass: 190.68 67-162/88-224 g LV Mass Index: 85.89 43-95/49-115 g/m2 LVOT Diam: 1.90 3.0+(-)1.3 cm 2D Systolic Function EF 4C: 72.90 >55% EF 2C: 61.10 >55% EF BiP: 69.10 >55% Mitral Valve MV Pk E: 0.66 MV PK A: 0.60 MV Decel Time: 227.00 E/A: 1.10 E'Lateral: 3.77 E'Medial: 5.51 E/E' Med: 11.90 E/E' Lat: 17.40 PHT: 67.00 MVA PHT: 3.28 Decel Lagrange: 2.88 Aortic Valve AoV Pk Rhys: 1.56 AoV Pk Grad: 10.00 LVOT LVOT Pk Rhys: 1.53 LVOT Mn Rhys: 1.10 LVOT VTI: 0.32 LVOT Pk Grad: 9.00 LVOT Mn Grad: 6.00 LVOT Diam: 1.90 LVOT Area: 2.84 Diastolic Function MV Pk E: 0.66 MV Pk A: 0.60 E/A: 1.10 E'Medial: 5.51 E/E' Med: 11.90 E' Laterial: 3.77 E/E' Lat: 17.40 Tricuspid Valve TR Pk Rhys: 2.39 TR Pk Grad: 23.00 Great Vessels Aorta Ao Root-2D: 3.30 2.0-3.7 cm Ao Asc: 3.70 2.1-3.4 cm Updated in Other Vendor System with Status of Final Peewee Elliott MD electronically signed on 02/25/2020 4:58:38 PM with status of Final
[2020-02-26 03:34] VITALS: BP 150/72; PULSE 70; RESP 18; TEMP 36.4; O2SAT 95
[2020-02-26 07:42] VITALS: BP 122/58; PULSE 74; RESP 14; TEMP 36.4; O2SAT 93
[2020-02-26] MEDS: Heparin Sodium,Porcine 5,000 UNIT/ML VIAL 5000 UNIT SUBCUT (09:14)
[2020-02-26] MEDS: Escitalopram Oxalate 10 MG TABLET PO (09:14)
[2020-02-26] MEDS: Memantine HCl 10 MG TABLET PO (09:14)
[2020-02-26] MEDS: Cholecalciferol (Vitamin D3) 25 MCG TABLET PO (09:14)
[2020-02-26] MEDS: 0.9 % Sodium Chloride Flush 3 ML SYRINGE IVFLUSH (09:14)
--- NOTE | 2020-02-26 11:17 | PM.DS ---
DS: Providers Provider Date of Service: 02/26/20 Date of admission: 02/23/20 21:04 Primary care physician: Unknown Physician DS: Diagnosis Discharge Diagnosis (1) Syncope: Status: Acute (2) Abnormal EKG: Status: Acute DS: Medications Discharge Medications Home Medications: Home Medications Medication Instructions Recorded Confirmed citalopram 20 mg tablet 20 mg PO DAILY 02/11/20 02/23/20 galantamine 8 mg tablet 8 mg PO BID 02/11/20 02/23/20 memantine 10 mg tablet 10 mg PO BID 02/11/20 02/23/20 ascorbic acid (vitamin C) [Vitamin 500 mg PO DAILY 02/23/20 02/23/20 C] cholecalciferol (vitamin D3) 25 mcg PO DAILY 02/23/20 02/23/20 DS: Summary Hospital Course Hospital Course: Patient underwent workup for syncope which included continuous alarm security or surveillance monitor which did not reveal any cause for his syncopal episode. He underwent a 2D echo which was also negative for any identifiable cause. His with orthostatics were negative. Patient had no further syncopal episodes in the hospital. He will be discharged home with VNA services. In regards to his abnormal EKG, this was suspected to be old in nature as his echo did not show any wall motion abnormalities and his high sensitivity troponins were negative x2. Given his age and advanced dementia, would recommend conservative management. The above information was relayed to the patient's as well as patient's son Nikita. Time Spent with Patient Time attestation: Total time spent providing and/or coordinating discharge services: Discharge coordination time: Greater than 30 minutes Physical Exam Vital Signs: Vital Signs: Last Vital Signs Temp 97.6 F 02/26/20 07:42 Pulse 74 02/26/20 07:42 Resp 14 02/26/20 07:42 BP 122/58 L 02/26/20 07:42 Pulse Ox 93 02/26/20 07:42 Body Mass Index 29.8 General - no acute distress, appears comfortable Cardiovascular - regular rate and rhythm, S1-S2 Lungs - normal respiratory effort, clear to auscultation bilaterally, no wheezing Abdomen - soft, nontender, no rebound or guarding Extremities - no edema bilaterally Neuro - awake and alert, no focal deficits; non-verbal DS: Data Data Completed and Pending Labs on day of discharge: Laboratory Tests 02/23/20 02/23/20 02/23/20 16:09 16:09 16:09 WBC 7.2 RBC 4.49 L Hgb 14.7 Hct 44.0 MCV 98.0 MCH 32.7 MCHC 33.4 RDW 12.7 Plt Count 220 MPV 9.7 Immature Gran % (Auto) 0.3 Neut % (Auto) 55.1 Lymph % (Auto) 29.0 [place] % (Auto) 9.2 Eos % (Auto) 5.8 H Baso % (Auto) 0.6 Lymph # (Auto) 2.1 [place] # (Auto) 0.7 Eos # (Auto) 0.4 Baso # (Auto) 0.0 Abs Immat Gran (auto) 0.02 Absolute Neuts (auto) 4.0 Absolute Nucleated RBC 0.000 Nucleated RBC % (auto) 0.0 PT INR Sodium 142 Potassium 4.4 Chloride 107 Carbon Dioxide 28 Anion Gap 11 L BUN 17 H Creatinine 1.32 Estim Creat Clear Calc 57.3 Estimated GFR 53 Random Glucose 131 H Calcium 8.5 Magnesium 2.5 Total Bilirubin 0.4 Direct Bilirubin 0.2 AST 16 ALT 21 Alkaline Phosphatase 67 Troponin I High Sens < 3.5 Total Protein 6.4 L Albumin 3.6 Urine Color Urine Appearance Urine pH Ur Specific [place] Urine Protein Urine Glucose (UA) Urine Ketones Urine Blood Urine Nitrite Ur Leukocyte Esterase COVID-19 ([facility]) COVID-19 Clin Com 02/23/20 02/23/20 02/23/20 16:09 19:11 20:42 WBC RBC Hgb Hct MCV MCH MCHC RDW Plt Count MPV Immature Gran % (Auto) Neut % (Auto) Lymph % (Auto) [place] % (Auto) Eos % (Auto) Baso % (Auto) Lymph # (Auto) [place] # (Auto) Eos # (Auto) Baso # (Auto) Abs Immat Gran (auto) Absolute Neuts (auto) Absolute Nucleated RBC Nucleated RBC % (auto) PT 12.3 INR 1.0 Sodium Potassium Chloride Carbon Dioxide Anion Gap BUN Creatinine Estim Creat Clear Calc Estimated GFR Random Glucose Calcium Magnesium Total Bilirubin Direct Bilirubin AST ALT Alkaline Phosphatase Troponin I High Sens < 3.5 Total Protein Albumin Urine Color Urine Appearance Urine pH Ur Specific [place] Urine Protein Urine Glucose (UA) Urine Ketones Urine Blood Urine Nitrite Ur Leukocyte Esterase COVID-19 (KARLA) Negative COVID-19 Clin Com See Note 02/24/20 02/24/20 02/24/20 05:05 05:05 06:15 WBC 6.3 RBC 4.15 L Hgb 13.6 L Hct 39.7 L MCV 95.7 MCH 32.8 MCHC 34.3 RDW 12.5 Plt Count 193 MPV 9.9 Immature Gran % (Auto) 0.2 Neut % (Auto) 40.7 L Lymph % (Auto) 43.7 H [place] % (Auto) 8.9 Eos % (Auto) 6.3 H Baso % (Auto) 0.2 Lymph # (Auto) 2.8 [place] # (Auto) 0.6 Eos # (Auto) 0.4 Baso # (Auto) 0.0 Abs Immat Gran (auto) 0.01 Absolute Neuts (auto) 2.6 Absolute Nucleated RBC 0.000 Nucleated RBC % (auto) 0.0 PT INR Sodium 142 Potassium 3.6 Chloride 107 Carbon Dioxide 26 Anion Gap 13 BUN 15 Creatinine 0.94 Estim Creat Clear Calc 80.4 Estimated GFR > 60 Random Glucose 91 Calcium 8.4 Magnesium Total Bilirubin Direct Bilirubin AST ALT Alkaline Phosphatase Troponin I High Sens Total Protein Albumin Urine Color YELLOW Urine Appearance CLEAR Urine pH 6.0 Ur Specific [place] >= 1.030 H Urine Protein NEG Urine Glucose (UA) NEG Urine Ketones 15 Urine Blood NEG Urine Nitrite NEG Ur Leukocyte Esterase NEG COVID-19 ([facility]LA) COVID-19 Clin Com 02/25/20 02/25/20 09:31 09:31 WBC 4.5 L RBC 3.86 L Hgb 12.7 L Hct 37.4 L MCV 96.9 MCH 32.9 MCHC 34.0 RDW 12.8 Plt Count 190 MPV 10.1 Immature Gran % (Auto) Neut % (Auto) Lymph % (Auto) [place] % (Auto) Eos % (Auto) Baso % (Auto) Lymph # (Auto) [place] # (Auto) Eos # (Auto) Baso # (Auto) Abs Immat Gran (auto) Absolute Neuts (auto) Absolute Nucleated RBC 0.000 Nucleated RBC % (auto) 0.0 PT INR Sodium 142 Potassium 4.0 Chloride 108 Carbon Dioxide 27 Anion Gap 11 L BUN 13 Creatinine 1.11 Estim Creat Clear Calc 68.1 Estimated GFR > 60 Random Glucose 103 Calcium 8.5 Magnesium Total Bilirubin Direct Bilirubin AST ALT Alkaline Phosphatase Troponin I High Sens Total Protein Albumin Urine Color Urine Appearance Urine pH Ur Specific [place] Urine Protein Urine Glucose (UA) Urine Ketones Urine Blood Urine Nitrite Ur Leukocyte Esterase COVID-19 ([facility]ARLA) COVID-19 Clin Com Discharge Plan Discharge Patient Disposition: Home Health Service Referrals: Physician,Unknown [Primary Care Provider] - Discharge Medications: Continued ascorbic acid (vitamin C) [Vitamin C] 500 mg Tablet 500 mg PO DAILY RF: 0 cholecalciferol (vitamin D3) 25 mcg (1,000 unit) Tablet 25 mcg PO DAILY RF: 0 galantamine 8 mg tablet 8 mg PO BID RF: 0 memantine 10 mg tablet 10 mg PO BID RF: 0 citalopram 20 mg tablet 20 mg PO DAILY RF: 0 Discharge Orders: Discharge Order (Routine); Ordered 02/26/20 Ordered By: Yadiel Quinones Diet: advance to usual diet Activity on Discharge: As tolerated Visit Report Forms: Patient Portal Discharge page Care Plan Goals: To stay healthy and out of the hospital. Health Concerns: Syncope Plan of Treatment: No specific cause for your passing out was found. If this reoccurs, please return to the hospital.
[2020-02-26 11:18] VITALS: BP 121/62; PULSE 64; RESP 16; TEMP 37.2; O2SAT 91
--- NOTE | 2020-02-26 11:36 | MHC.CM.PN ---
Patient has been medically cleared for dc to home today with VNA. A referral has been made to [facility] and they have been made aware of today's dc. Patient and his Son/Emil are aware of and in agreement with the dc plan. Emil will pick Patient up at 1 PM; RN has been notified.
--- NOTE | 2020-02-26 12:54 | W.MHC.F2F ---
Service Date Service Date: 02/26/20 Encounter Date of encounter: 02/26/20 Reasons for Services Reason for long-term: CV/CP assess and/or care Reason for physical therapy: home safety and mobility Reason for occupational therapy: home safety and mobility MD Overseeing Care: Will Mcknight Homebound: Leaving the home is medically contraindicated at this time without the asist of a device and/or another person due th the listed conditions above and below. Reason homebound: cognitively impaired / unsafe Certification: Based on the above findings, I certify that this patient is confined to the home and needs intermittent long-term care, physical therapy and/or speech therapy, or continues to need occupational therapy. The patient is under my care, and I have initiated the establishment of the plan of care. The patient will be followed by a physician who will periodically review the plan of care.
== END 2020-02-26 13:28 | disposition home health service (06) | DRG 312 ==
LOC: HO.ED 17:56 → HO.S3 02-24 07:12 → HO.IMC 02-24 10:05
PROVIDERS: Physician Assistant; Admitting Provider Internal Medicine; Emergency Provider Emergency Medicine; PCP Internal Medicine; Visit Provider Family Medicine
DX: R55 Syncope and collapse (principal); G30.9 Alzheimer's disease, unspecified; F02.80 Dementia in other diseases classified elsewhere, unspecified severity, without behavioral disturbance, psychotic disturbance, mood disturbance, and anxiety; R94.31 Abnormal electrocardiogram [ECG] [EKG]; Z20.828 Contact with and (suspected) exposure to other viral communicable diseases; Z79.899 Other long term (current) drug therapy; Z66 Do not resuscitate
CPT/HCPCS: 36415; 80048; 80076; 81003; 83735; 84484; 85025; 85027; 85610; 87635; 93005; 93306; 99219; 99285

== ENCOUNTER 2021-04-13 09:55 | Outpatient (REF) | payer MEDICARE, SELFPAY ==
[2021-04-13 10:22] LABS: MANUAL DIFF FLAG NO
[2021-04-13 11:17] LABS: Basophils Percent Auto 0.8 % (0-2); Eosinophils Absolute Auto 0.3 X10*3/uL (0.0-0.4); Eosinophils Percent Auto 7.8 % (0-4); Hematocrit 40.3 % (42.0-52.0); Hemoglobin 13.3 g/dl (14.0-18.0); Lymphocytes Absolute Auto 1.7 X10*3/uL (1.2-4.9); Mean Corpuscular Hemoglobin 32.2 pg (27.0-33.0); Mean Corpuscular Volume 97.6 fL (80.0-98.0); Mean Platelet Volume 10.2 fL (9.4-12.4); Monocytes Absolute Auto 0.3 X10*3/uL (0.1-1.2); Monocytes Percent Auto 8.5 % (2-11); Neutrophils Absolute Auto 1.5 x10*3/uL (2.0-8.3); Neutrophils Percent Auto 38.9 % (45-73); Platelet Count 202 X10*3/uL (160-400); Red Blood Count 4.13 X10*6/uL (4.60-5.80); Red Cell Distribution Width 13.3 % (11.0-16.0); White Blood Count 3.9 X10*3/uL (4.8-10.8)
[2021-04-13 11:49] LABS: Alanine Aminotransferase 22 U/L (0-40); Albumin Level 3.7 g/dL (3.5-5.0); Alkaline Phosphatase 70 U/L (39-117); Anion Gap 8 (12-20); Aspartate Amino Transferase 20 U/L (5-37); Bilirubin Total 0.5 mg/dL (0.0-1.0); Blood Urea Nitrogen 21 mg/dL (9-16); Calcium 9.3 mg/dL (8.4-10.2); Carbon Dioxide 32 mmol/L (22-29); Chloride 105 mmol/L (96-108); Cholesterol 179 mg/dL; Estimated Glomerular Filt Rate > 60; Glucose Fasting 112 mg/dL (60-99); HDL Cholesterol 50 mg/dL; LDL Cholesterol Calculated 111 mg/dl; Potassium 4.1 mmol/L (3.3-5.1); Sodium 141 mmol/L (135-145); Total Protein 6.8 g/dL (6.5-8.0); Triglycerides 93 mg/dL
[2021-04-13 12:07] LABS: Thyroid Stimulating Hormone 1.88 uIU/mL (0.32-4.0)
== END 2021-04-13 09:56 | disposition home or self-care (01) ==
LOC: HO.LAB 09:55
PROVIDERS: PCP Internal Medicine; Visit Provider Internal Medicine
DX: Z00.00 Encounter for general adult medical examination without abnormal findings (principal); Z13.0 Encounter for screening for diseases of the blood and blood-forming organs and certain disorders involving the immune mechanism
CPT/HCPCS: 36415; 80053; 80061; 84443; 85025

== ENCOUNTER 2021-06-14 09:13 | Emergency (ER) | payer MEDICARE, SELFPAY ==
--- NOTE | ~2021-06-14 | XR_ITS ---
EXAMINATION: XR CHEST CLINICAL INFORMATION: Altered mental status. COMPARISON: 11/16/2008 chest radiographS. TECHNIQUE: Frontal view of the chest was obtained. FINDINGS: The chin partially obscures the lung apices. No significant abnormality is noted involving the heart, lungs, mediastinum, bony thorax or soft tissues. XR/XR chest 1V IMPRESSION: No acute cardiopulmonary process.
--- NOTE | ~2021-06-14 | US_ITS ---
EXAMINATION: US ABDOMEN LIMITED CLINICAL INFORMATION: Weakness. Right upper quadrant pain and elevated liver function tests.. COMPARISON: None TECHNIQUE: Real-time imaging of the gallbladder FINDINGS: Exam is limited as the patient would not cooperate with the exam. The gallbladder is normal in size. No gallstones are seen. The gallbladder wall does not appear thickened. There is no pericholecystic fluid. US/US abdomen limited IMPRESSION: Limited exam. The gallbladder appears normal.
--- NOTE | ~2021-06-14 | CT_ITS ---
EXAMINATION: CT HEAD WITHOUT CONTRAST CLINICAL INFORMATION: Altered mental status COMPARISON: MRI brain dated 03/10/2013. TECHNIQUE: Contiguous axial imaging was performed from the skull base to vertex without intravenous administration of contrast. This CT examination was performed using dose optimization techniques as appropriate, variously including the following: *Automated exposure control *Adjustment of mA and/or kV according to patient size (this includes techniques or standardized protocols for targeted exams where dose is matched to indication/reason for exam; i.e. extremities or head) *Use of iterative reconstruction technique DLP: 764 mGy-cm FINDINGS: There is no evidence of acute intracranial hemorrhage or territorial infarction. No abnormal mass effect or midline shift is seen. Messer to white matter differentiation is well preserved. No extra-axial fluid collections are identified. Marked generalized brain parenchymal volume loss with commensurate prominence of the ventricular system and cortical sulci/fissures. Moderate patchy subcortical and periventricular white matter low-attenuation changes statistically related to chronic white matter small vessel ischemic disease. Cavernous carotid calcifications. The osseous structures and soft tissues are normal. Mucoperiosteal thickening present throughout the paranasal sinuses, along with scattered secretions. Mastoid air cells are clear. CT/CT head/brain wo con IMPRESSION: * No acute intracranial hemorrhage or transcortical infarct. * Severe generalized brain parenchymal volume loss and moderate white matter small vessel ischemic changes.
[2021-06-14 09:20] VITALS: BP 107/60; BP 113/49; PULSE 88; PULSE 94; RESP 18; TEMP 37.3; O2SAT 94; O2SAT 98; BMI 29.0
--- NOTE | 2021-06-14 09:21 | ED_ITS ---
HPI - Weakness General Chief complaint: General Medical Stated complaint: INCREASED LETHARGY, COUGH Time Seen by Provider: 06/14/21 09:21 Source: patient Mode of arrival: EMS Limitations: altered mental status (dementia) History of Present Illness MD Complaint: generalized weakness (cough ) Onset (ago): day(s) (2) Duration: constant Location: generalized Migration: none Severity: moderate Quality: dull Relieving factors: rest Exacerbating factors: exertion (can't get up out of chair on his own) Associated symptoms: loss of appetite and other (malaise, cough) Related Data Home Medications Medication Instructions Recorded Confirmed citalopram 20 mg tablet 20 mg PO DAILY 02/11/20 06/14/21 mirtazapine 7.5 mg tablet 7.5 mg PO BEDTIME 04/13/21 06/14/21 risperidone 0.5 mg tablet 0.5 mg PO BID 04/13/21 06/14/21 Allergies Allergy/AdvReac Type Severity Reaction Status Date / Time No Known Allergies Allergy Verified 04/13/21 09:05 Review of Systems Review of Systems: Constitutional : No Fever, No Chills, pos Fatigue, pos Malaise ENT/Mouth : No sore throat, No Rhinorrhea Eyes: No Eye Pain, No Swelling, No Redness Cardiovascular : No Chest Pain, No SOB, No Dyspnea on Exertion Respiratory : pos Cough, No Sputum, No Wheezing Gastrointestinal : No Nausea, No Vomiting, No Diarrhea, No abdominal Pain, No Hematochezia, No Melena Genitourinary : No Dysuria, No Urinary Frequency, No Hematuria, Musculoskeletal : No joint pain, No Myalgias, No Joint Swelling Skin : No Skin Lesions, No rash Neuro : pos Weakness, No Numbness, No Dizziness, No Headache All other systems reviewed and are negative [facility] Past Medical History Medical History Dementia Surgical History H/O rectal polypectomy History of ligation of vein History of surgery Family History Family History Father Medical history unknown Mother Medical history unknown Social History Social History Household Members: Significant Other Housing: Unknown / Unable to assess Do you presently have visiting nurse or other home services: No Unable to assess alcohol history related to: Unknown Alcohol intake: never Patient Tobacco Use Status: Former Tobacco user Tobacco use type: Cigarette e-Cigarette/Vaping Use: Never Used Second Hand Smoke Exposure: No Use of substances other than those prescribed or required for medical reasons: No Advance Directives: Yes Advance Directives Information Provided: Yes Advance Directives on File: No service: Yes Current occupational status: retired Cognitive needs: No Hearing needs: No Vision needs: No Physical Exam Vital Signs: Vital Signs: Last Vital Signs Temp 99.2 F 06/14/21 09:20 Pulse 84 06/14/21 12:02 Resp 12 06/14/21 12:02 BP 134/58 L 06/14/21 12:02 Pulse Ox 94 06/14/21 09:46 BMI result Body Mass Index 29.0 Appearance: Somnolent but wakes to voice, mumbles. No acute distress. Eyes: Pupils equal, round and reactive to light. ENT: Pharynx normal. Neck: Normal inspection. Neck supple. CVS: Normal heart rate and rhythm. Pulses normal. Respiratory: No respiratory distress. Breath sounds normal. Abdomen: Soft and nontender. Skin: Skin warm and dry. Normal skin color. Normal skin turgor. Extremities: No lower extremity edema. No calf ttp Neuro: confused will not participate just says yes. moves all extremities. Course Course Course Narrative: IVF ordered, no sig findings will involve CM and PT Patient placed in physician observation at 154pm. The indication for observ ation is that the patient needs more time to see if their weakness improves or they will need to be admitted/STR. At this time the patient is well developed well nourished, lungs clear, CV RRR, abd nontender, neuro is at baseline MDM - Weakness MDM Narrative Medical decision making narrative: 80 yo male with hx of dementia has been weaker x 2 days not eating can't get out of his chair - has had a cough as well. At this time will need labs, hydration, cultures, UA and CXR to look for infection. CT scan as well for ICH. Dispo per results and findings. Lab Data Result diagrams: 06/14/21 09:50 06/14/21 09:50 Labs: Lab Results 06/14/21 06/14/21 06/14/21 Range/Units 09:50 09:50 09:50 WBC 10.5 (4.8-10.8) X10*3/uL RBC 4.03 L (4.60-5.80) X10*6/uL Hgb 13.1 L (14.0-18.0) g/dl Hct 39.6 L (42.0-52.0) % MCV 98.3 H (80.0-98.0) fL MCH 32.5 (27.0-33.0) pg MCHC 33.1 (31.0-36.0) g/dl RDW 13.3 (11.0-16.0) % Plt Count 150 L D (160-400) X10*3/uL MPV 10.1 (9.4-12.4) fL Immature Gran % (Auto) 0.5 H (0.0-0.4) % Neut % (Auto) 78.6 H (45-73) % Lymph % (Auto) 11.6 L (20-40) % Hart % (Auto) 8.4 (2-11) % Eos % (Auto) 0.7 (0-4) % Baso % (Auto) 0.2 (0-2) % Lymph # (Auto) 1.2 (1.2-4.9) X10*3/uL Hart # (Auto) 0.9 (0.1-1.2) X10*3/uL Eos # (Auto) 0.1 (0.0-0.4) X10*3/uL Baso # (Auto) 0.0 (0.0-0.2) X10*3/uL Abs Immat Gran (auto) 0.05 H (0.00-0.03) X10*3/uL Absolute Neuts (auto) 8.2 (2.0-8.3) x10*3/uL Absolute Nucleated RBC 0.000 (0.0-0.012) X10*3/uL Nucleated RBC % (auto) 0.0 (0.0-0.2) /100WBC PT (9.9-13.0) SEC INR (0.9-1.1) Sodium 139 (135-145) mmol/L Potassium 4.1 (3.3-5.1) mmol/L Chloride 106 (96-108) mmol/L Carbon Dioxide 27 (22-29) mmol/L Anion Gap 10 L (12-20) BUN 18 H (9-16) mg/dL Creatinine 1.27 (0.5-1.4) mg/dL Estim Creat Clear Calc 43.2 Estimated GFR 55 Random Glucose 111 (60-115) mg/dL Lactic Acid (0.5-2.0) mmol/L Calcium 8.9 (8.4-10.2) mg/dL Magnesium 1.9 (1.6-2.6) mg/dL Total Bilirubin 1.0 (0.0-1.0) mg/dL Direct Bilirubin 0.4 (0.0-0.5) mg/dL AST 40 H D (5-37) U/L ALT 45 H (0-40) U/L Alkaline Phosphatase 75 (39-117) U/L Ammonia 20 (13-55) umol/L Troponin I High Sens (<3.5-35.0) ng/L Total Protein 6.9 (6.5-8.0) g/dL Albumin 3.5 (3.5-5.0) g/dL Lipase 19 (8-78) U/L Urine Color Urine Appearance Urine pH (5.0-8.0) Ur Specific [place] (1.005-1.025) Urine Protein (NEG-TRACE) MG/DL Urine Glucose (UA) (NEG) MG/DL Urine Ketones (NEG) MG/DL Urine Blood (NEG) Urine Nitrite (NEG) Ur Leukocyte Esterase (NEG) Urine RBC (0) /HPF Urine WBC (0-4) /HPF Ur Squamous Epith Cells /LPF Amorphous Sediment /LPF Urine Bacteria /LPF COVID-19 ([facility]) (Negative) COVID-19 Clin Com Influenza Type A (EFRAIN) (Negative) Influenza Type B (EFRAIN) (Negative) Influenza A & B Note 06/14/21 06/14/21 06/14/21 Range/Units 09:50 09:50 09:50 WBC (4.8-10.8) X10*3/uL RBC (4.60-5.80) X10*6/uL Hgb (14.0-18.0) g/dl Hct (42.0-52.0) % MCV (80.0-98.0) fL MCH (27.0-33.0) pg MCHC (31.0-36.0) g/dl RDW (11.0-16.0) % Plt Count (160-400) X10*3/uL MPV (9.4-12.4) fL Immature Gran % (Auto) (0.0-0.4) % Neut % (Auto) (45-73) % Lymph % (Auto) (20-40) % Hart % (Auto) (2-11) % Eos % (Auto) (0-4) % Baso % (Auto) (0-2) % Lymph # (Auto) (1.2-4.9) X10*3/uL Hart # (Auto) (0.1-1.2) X10*3/uL Eos # (Auto) (0.0-0.4) X10*3/uL Baso # (Auto) (0.0-0.2) X10*3/uL Abs Immat Gran (auto) (0.00-0.03) X10*3/uL Absolute Neuts (auto) (2.0-8.3) x10*3/uL Absolute Nucleated RBC (0.0-0.012) X10*3/uL Nucleated RBC % (auto) (0.0-0.2) /100WBC PT 13.8 H (9.9-13.0) SEC INR 1.2 H (0.9-1.1) Sodium (135-145) mmol/L Potassium (3.3-5.1) mmol/L Chloride (96-108) mmol/L Carbon Dioxide (22-29) mmol/L Anion Gap (12-20) BUN (9-16) mg/dL Creatinine (0.5-1.4) mg/dL Estim Creat Clear Calc Estimated GFR Random Glucose (60-115) mg/dL Lactic Acid 0.9 (0.5-2.0) mmol/L Calcium (8.4-10.2) mg/dL Magnesium (1.6-2.6) mg/dL Total Bilirubin (0.0-1.0) mg/dL Direct Bilirubin (0.0-0.5) mg/dL AST (5-37) U/L ALT (0-40) U/L Alkaline Phosphatase (39-117) U/L Ammonia (13-55) umol/L Troponin I High Sens (<3.5-35.0) ng/L Total Protein (6.5-8.0) g/dL Albumin (3.5-5.0) g/dL Lipase (8-78) U/L Urine Color Urine Appearance Urine pH (5.0-8.0) Ur Specific [place] (1.005-1.025) Urine Protein (NEG-TRACE) MG/DL Urine Glucose (UA) (NEG) MG/DL Urine Ketones (NEG) MG/DL Urine Blood (NEG) Urine Nitrite (NEG) Ur Leukocyte Esterase (NEG) Urine RBC (0) /HPF Urine WBC (0-4) /HPF Ur Squamous Epith Cells /LPF Amorphous Sediment /LPF Urine Bacteria /LPF COVID-19 ([facility]) Negative (Negative) COVID-19 Clin Com See Note Influenza Type A (EFRAIN) (Negative) Influenza Type B (EFRAIN) (Negative) Influenza A & B Note 06/14/21 06/14/21 06/14/21 Range/Units 09:50 09:50 12:52 WBC (4.8-10.8) X10*3/uL RBC (4.60-5.80) X10*6/uL Hgb (14.0-18.0) g/dl Hct (42.0-52.0) % MCV (80.0-98.0) fL MCH (27.0-33.0) pg MCHC (31.0-36.0) g/dl RDW (11.0-16.0) % Plt Count (160-400) X10*3/uL MPV (9.4-12.4) fL Immature Gran % (Auto) (0.0-0.4) % Neut % (Auto) (45-73) % Lymph % (Auto) (20-40) % Hart % (Auto) (2-11) % Eos % (Auto) (0-4) % Baso % (Auto) (0-2) % Lymph # (Auto) (1.2-4.9) X10*3/uL Hart # (Auto) (0.1-1.2) X10*3/uL Eos # (Auto) (0.0-0.4) X10*3/uL Baso # (Auto) (0.0-0.2) X10*3/uL Abs Immat Gran (auto) (0.00-0.03) X10*3/uL Absolute Neuts (auto) (2.0-8.3) x10*3/uL Absolute Nucleated RBC (0.0-0.012) X10*3/uL Nucleated RBC % (auto) (0.0-0.2) /100WBC PT (9.9-13.0) SEC INR (0.9-1.1) Sodium (135-145) mmol/L Potassium (3.3-5.1) mmol/L Chloride (96-108) mmol/L Carbon Dioxide (22-29) mmol/L Anion Gap (12-20) BUN (9-16) mg/dL Creatinine (0.5-1.4) mg/dL Estim Creat Clear Calc Estimated GFR Random Glucose (60-115) mg/dL Lactic Acid (0.5-2.0) mmol/L Calcium (8.4-10.2) mg/dL Magnesium (1.6-2.6) mg/dL Total Bilirubin (0.0-1.0) mg/dL Direct Bilirubin (0.0-0.5) mg/dL AST (5-37) U/L ALT (0-40) U/L Alkaline Phosphatase (39-117) U/L Ammonia (13-55) umol/L Troponin I High Sens 4.3 (<3.5-35.0) ng/L Total Protein (6.5-8.0) g/dL Albumin (3.5-5.0) g/dL Lipase (8-78) U/L Urine Color YELLOW Urine Appearance CLOUDY Urine pH 8.0 (5.0-8.0) Ur Specific [place] 1.015 (1.005-1.025) Urine Protein 1+ H (NEG-TRACE) MG/DL Urine Glucose (UA) NEG (NEG) MG/DL Urine Ketones 40 (NEG) MG/DL Urine Blood 3+ H (NEG) Urine Nitrite NEG (NEG) Ur Leukocyte Esterase NEG (NEG) Urine RBC 76-150 H (0) /HPF Urine WBC 0 (0-4) /HPF Ur Squamous Epith Cells 1+ /LPF Amorphous Sediment 3+ /LPF Urine Bacteria NONE /LPF COVID-19 ([facility]LA) (Negative) COVID-19 Clin Com Influenza Type A (EFRAIN) Negative (Negative) Influenza Type B (EFRAIN) Negative (Negative) Influenza A & B Note See Note ECG Data Attestation: I personally reviewed and interpreted this ECG as follows: ECG interpretation date: 06/14/21 ECG interpretation time: 10:56 Interpretation: Rate: 85 Rhythm: NSR [place]: normal Normal P waves. Normal [place]. Normal QRS complex. ST T wave : normal no PILO qTC: normal prior studies: no acute ischemia The study has been interpreted contemporaneously by me. . Discharge Plan Discharge Clinical Impression: Weakness, Acute dehydration Patient Disposition: Still a Patient Prescriptions: No Action citalopram 20 mg tablet 20 mg PO DAILY 0RF mirtazapine 7.5 mg tablet 7.5 mg PO BEDTIME 0RF risperidone 0.5 mg tablet 0.5 mg PO BID 0RF
--- NOTE | 2021-06-14 09:34 | ECG_ITS ---
Test Reason : weakness Blood Pressure : / mmHG Vent. Rate : 085 BPM Atrial Rate : 085 BPM P-R Int : 188 ms QRS Dur : 084 ms QT Int : 354 ms P-R-T Axes : 058 068 063 degrees QTc Int : 421 ms Normal sinus rhythm Normal ECG When compared with ECG of 23-FEB-2020 15:52, Previous ECG has undetermined rhythm, needs review T wave inversion no longer evident in Anterolateral leads Referred By: Sendy Mauricio Electronically Signed By:CORI REDMAN MD
[2021-06-14 09:46] VITALS: BP 107/60; PULSE 91; RESP 13; O2SAT 94
[2021-06-14 09:57] LABS: MANUAL DIFF FLAG NO
[2021-06-14 09:58] LABS: Basophils Percent Auto 0.2 % (0-2); Eosinophils Absolute Auto 0.1 X10*3/uL (0.0-0.4); Eosinophils Percent Auto 0.7 % (0-4); Hematocrit 39.6 % (42.0-52.0); Hemoglobin 13.1 g/dl (14.0-18.0); Imm Gran Abs Auto 0.05 X10*3/uL (0.00-0.03); Imm Gran Pct Auto 0.5 % (0.0-0.4); Lymphocytes Absolute Auto 1.2 X10*3/uL (1.2-4.9); Lymphocytes Percent Auto 11.6 % (20-40); Mean Corpuscular HGB Conc 33.1 g/dl (31.0-36.0); Mean Corpuscular Hemoglobin 32.5 pg (27.0-33.0); Mean Corpuscular Volume 98.3 fL (80.0-98.0); Mean Platelet Volume 10.1 fL (9.4-12.4); Monocytes Absolute Auto 0.9 X10*3/uL (0.1-1.2); Monocytes Percent Auto 8.4 % (2-11); Neutrophils Absolute Auto 8.2 x10*3/uL (2.0-8.3); Neutrophils Percent Auto 78.6 % (45-73); Platelet Count 150 X10*3/uL (160-400); Red Blood Count 4.03 X10*6/uL (4.60-5.80); Red Cell Distribution Width 13.3 % (11.0-16.0); White Blood Count 10.5 X10*3/uL (4.8-10.8)
[2021-06-14] MEDS: 0.9 % Sodium Chloride 1,000 ML 999 ML IVCONT (09:59)
--- NOTE | 2021-06-14 10:04 | PC.NURSE ---
pt oriented to person - baseline per , increased weakness and difficulty walking since yesterday, vss, labs drawn by tech, IVF started per provider order.
[2021-06-14 10:06] LABS: Ammonia 20 umol/L (13-55)
[2021-06-14 10:08] LABS: INTERNATIONAL NORM RATIO 1.2 (0.9-1.1); Prothrombin Time 13.8 SEC (9.9-13.0)
[2021-06-14 10:11] LABS: Lactic Acid 0.9 mmol/L (0.5-2.0)
[2021-06-14 10:16] LABS: Alanine Aminotransferase 45 U/L (0-40); Albumin Level 3.5 g/dL (3.5-5.0); Alkaline Phosphatase 75 U/L (39-117); Anion Gap 10 (12-20); Aspartate Amino Transferase 40 U/L (5-37); Bilirubin Direct 0.4 mg/dL (0.0-0.5); Blood Urea Nitrogen 18 mg/dL (9-16); Calcium 8.9 mg/dL (8.4-10.2); Carbon Dioxide 27 mmol/L (22-29); Chloride 106 mmol/L (96-108); Creatinine Clr Calc Pharmacy 43.2; Estimated Glomerular Filt Rate 55; Glucose Random 111 mg/dL (60-115); Lipase 19 U/L (8-78); Magnesium 1.9 mg/dL (1.6-2.6); Potassium 4.1 mmol/L (3.3-5.1); Sodium 139 mmol/L (135-145); Total Protein 6.9 g/dL (6.5-8.0)
[2021-06-14 10:29] LABS: COVID-19 Test Negative (Negative); IDNOW Serial# 16C4AD1C; Influenza A Negative (Negative); Influenza B2 Negative (Negative)
[2021-06-14 10:30] LABS: Troponin-I High Sensitivity 4.3 ng/L (<3.5-35.0)
--- NOTE | 2021-06-14 11:04 | PHA.MEDREC ---
Pharmacy Consult ? Medication Reconciliation Pharmacy has completed the medication reconciliation.
[2021-06-14 12:02] VITALS: BP 134/58; PULSE 84; RESP 12
[2021-06-14 13:00] LABS: Appearance Urine CLOUDY; Color Urine YELLOW; Glucose Urine UA NEG (NEG); Leukocyte Esterase Urine NEG (NEG); Nitrite Urine NEG (NEG); Specific Gravity - Urine 1.015 (1.005-1.025); UACC Culture Trigger NO; Urine Blood 3+ (NEG); Urine Ketones 40 MG/DL (NEG); Urine Protein 1+ MG/DL (NEG-TRACE)
[2021-06-14] MEDS: 0.9 % Sodium Chloride 500 ML IV (13:26)
[2021-06-14 13:44] LABS: Amorphous Sediment Urine 3+ /LPF; Squamous Epithelial Cell Urine 1+ /LPF; WBC Urine 0 /HPF (0-4)
[2021-06-14 14:13] VITALS: BP 123/56; PULSE 85; RESP 18; O2SAT 96
[2021-06-14 14:15] VITALS: BP 123/56; PULSE 85; O2SAT 96
--- NOTE | 2021-06-14 14:40 | MHC.CM.ED ---
Addendum entered by Kristina Luciano 06/15/21 12:17: [facility]. Original Note: Received case management consult from Dr Mauricio. Patient came to the ER due to increased lethargy. Work up essentially negative. Physical therapy eval completed. Patient is not a good STR candidate due to advanced dementia. Met with patient and , Meera, in regards to discharge planning. Patient lives with , ambulates independently and had no services prior to coming to the hospital. Patient was ambulating independently, but slowly prior to Sunday. On Sunday patient started experiencing difficulty with getting up out of a chair and lifting his legs into bed. Patient's son came to assist with transfers. PCP veriried. Patient received 3 Pfizer vaccines. Patient sees Dr Crowder for nuerology. Patient's son has a copy of his HCP. Meera will try to obtain a copy. Meera aware that patient's insurance will not approve STR because patient is not able to participate. Patient does not have [facility]. Respite care at a facility for private pay. Meera doesn't feel this would be beneficial. Meera agreeable to patient going home with VNA. Referral made to [facility] via [facility]. BLS transport will be booked. Continue to monitor for d/c needs.
== END 2021-06-14 16:28 | disposition still patient (30) ==
PROVIDERS: Emergency Provider Emergency Medicine; PCP Internal Medicine
DX: R05.9 Cough, unspecified (principal); R53.1 Weakness; R41.82 Altered mental status, unspecified; E86.0 Dehydration; Z20.822 Contact with and (suspected) exposure to COVID-19; Z79.899 Other long term (current) drug therapy
CPT/HCPCS: 70450; 71045; 76705; 80048; 80076; 81001; 81003; 82140; 83605; 83690; 83735; 84484; 85025; 85610; 87040; 87502; 87635; 93005; 96360; 96361; 97162; 99284

== ENCOUNTER 2021-10-13 05:43 | Outpatient (REF) | payer MEDICARE, SELFPAY ==
[2021-10-13 08:38] LABS: MANUAL DIFF FLAG NO
[2021-10-13 08:39] LABS: Basophils Percent Auto 0.5 % (0-2); Eosinophils Absolute Auto 0.4 X10*3/uL (0.0-0.4); Eosinophils Percent Auto 6.8 % (0-4); Hematocrit 36.1 % (42.0-52.0); Hemoglobin 11.9 g/dl (14.0-18.0); Imm Gran Abs Auto 0.01 X10*3/uL (0.00-0.03); Imm Gran Pct Auto 0.2 % (0.0-0.4); Lymphocytes Percent Auto 36.1 % (20-40); Mean Corpuscular Hemoglobin 31.6 pg (27.0-33.0); Mean Corpuscular Volume 95.8 fL (80.0-98.0); Mean Platelet Volume 10.7 fL (9.4-12.4); Monocytes Absolute Auto 0.5 X10*3/uL (0.1-1.2); Monocytes Percent Auto 9.1 % (2-11); Neutrophils Absolute Auto 2.6 x10*3/uL (2.0-8.3); Neutrophils Percent Auto 47.3 % (45-73); Platelet Count 177 X10*3/uL (160-400); Red Blood Count 3.77 X10*6/uL (4.60-5.80); Red Cell Distribution Width 13.6 % (11.0-16.0); White Blood Count 5.6 X10*3/uL (4.8-10.8)
[2021-10-13 09:30] LABS: Alanine Aminotransferase 90 U/L (0-40); Alkaline Phosphatase 75 U/L (39-117); Anion Gap 11 (12-20); Aspartate Amino Transferase 74 U/L (5-37); Bilirubin Total 0.3 mg/dL (0.0-1.0); Blood Urea Nitrogen 27 mg/dL (9-16); Calcium 8.5 mg/dL (8.4-10.2); Carbon Dioxide 29 mmol/L (22-29); Chloride 107 mmol/L (96-108); Cholesterol 146 mg/dL; Estimated Glomerular Filt Rate > 60; Glucose Fasting 88 mg/dL (60-99); HDL Cholesterol 38 mg/dL; LDL Cholesterol Calculated 92 mg/dl; Potassium 4.1 mmol/L (3.3-5.1); Sodium 143 mmol/L (135-145); Total Protein 5.8 g/dL (6.5-8.0); Triglycerides 81 mg/dL
[2021-10-13 11:47] LABS: Appearance Urine Cloudy; Color Urine Yellow; Glucose Urine UA Negative (Negative); Leukocyte Esterase Urine Small (1+) (Negative); Nitrite Urine Negative (Negative); PH 5.5 (5.0-9.0); Specific Gravity - Urine 1.025 (1.005-1.025); Urine Blood Negative (Negative); Urine Ketones Negative (Negative); Urine Protein Trace mg/dL (Neg-Trace)
[2021-10-13 11:53] LABS: Bacteria Urine 4+ (None Seen); Hyaline Casts Urine 0-2 /LPF (0-2); RBC Urine 0-2 /HPF (0-2); Squamous Epithelial Cell Urine 0-2 /HPF (0-2); UACC Culture Trigger YES
[2021-10-19 09:11] LABS: TS Negative Control Passed; TS Panel A 0; TS Panel B 0; TS Positive Control Passed; TSpotTB Negative (Negative)
== END 2021-10-13 05:44 | disposition home or self-care (01) ==
LOC: HO.HSH2E 05:43
PROVIDERS: Visit Provider Internal Medicine Medical Oncology
DX: Z12.5 Encounter for screening for malignant neoplasm of prostate (principal); Z11.1 Encounter for screening for respiratory tuberculosis; F32.A Depression, unspecified
CPT/HCPCS: 36415; 80053; 80061; 81001; 84153; 85025; 86481

== ENCOUNTER 2022-05-24 06:53 | Outpatient (REF) | payer MEDICARE, SELFPAY | END 2022-05-24 06:54 | disposition home or self-care (01) | LOC: HO.HSH2E 06:53 | PROVIDERS: Visit Provider Internal Medicine Medical Oncology | DX: H10.9 Unspecified conjunctivitis (principal) | CPT/HCPCS: 87070; 87205 ==